=== PATIENT | female | born 1945 | race Caucasian/White ===

== ENCOUNTER 2016-04-12 19:40 | Inpatient (IN) | payer OTHER, BC, MEDICARE ==
[~2016-04-12] VITALS: Ht 160 cm; Wt 57.7 kg
[2016-04-12 19:53] VITALS: BP 100/59; PULSE 60; RESP 22; TEMP 98.7; O2SAT 88
[2016-04-12] MEDS ORDERED: SODIUM CHLOR 0.9% 1000 ML INJ 1,000 ML IV SCH (19:53)
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
[2016-04-12 20:00] VITALS: PULSE 63; RESP 22; O2SAT 98
[2016-04-12] MEDS ORDERED: DIPHTH/TETANUS/ACEL PERTUSSIS (BOOSTER) 0.5 ML VIAL/PFS IM ONE (20:00)
[2016-04-12] MEDS ORDERED: ceFAZolin 2 GM PREMIX 50 ML IV ONE (20:00)
[2016-04-12 20:21] LABS: I-STAT POTASSIUM 4.7 MMOL/L (3.5-4.9)
[2016-04-12 20:32] LABS: APTT (PATIENT) 21.2 SEC (24.3-30.1); PROTHROMBIN TIME - PATIENT 10.8 SEC (9.8-11.6)
[2016-04-12 20:36] LABS: AUTOMATED NEUTROPHIL # 6.2 TH/MM3 (1.8-7.7); BASOPHIL % 0.5 % (0.0-2.0); EOSINOPHIL # 0.1 TH/MM3 (0-0.4); EOSINOPHIL % 1.1 % (0.0-4.0); HEMATOCRIT 35.1 % (35.0-46.0); HEMO FLAGS DIFF FINAL; LYMPH % 29.6 % (9.0-44.0); LYMPHOCYTE # 2.8 TH/MM3 (1.0-4.8); MEAN CELL VOLUME 89.6 FL (80.0-100.0); MEAN CORPUSCULAR HEMOGLOBIN 31.1 PG (27.0-34.0); MEAN CORPUSCULAR HGB CONC 34.7 % (32.0-36.0); MONO % 3.7 % (0.0-8.0); NEUT % 65.1 % (16.0-70.0); PLATELET COUNT 260 TH/MM3 (150-450); RED BLOOD COUNT 3.92 MIL/MM3 (4.00-5.30); RED CELL DISTRIBUTION WIDTH 12.5 % (11.6-17.2); WHITE BLOOD COUNT 9.5 TH/MM3 (4.0-11.0)
[2016-04-12 20:52] LABS: BICARBONATE 26.9 MEQ/L (21.0-32.0)
[2016-04-12 20:53] LABS: POTASSIUM 4.8 MEQ/L (3.5-5.1)
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
[2016-04-12] MEDS ORDERED: IODIXANOL 320 MG/ML 10 ML VIAL (for Rad CT) IV ONE (21:26)
[2016-04-12 21:30] VITALS: BP 85/54; PULSE 56; RESP 16; O2SAT 98
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
[2016-04-12] MEDS ORDERED: SODIUM CHLOR 0.9% 1000 ML INJ 1,000 ML IV ONE (22:00)
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
[2016-04-12 22:30] VITALS: BP 85/47; PULSE 75; RESP 16; O2SAT 98
[2016-04-12] MEDS ORDERED: MORPHINE SULFATE 4 MG/ML INJ IV PRN (22:45)
[2016-04-12 23:30] VITALS: BP 83/53; PULSE 58; RESP 16; O2SAT 98
[2016-04-13] VITALS (12 sets, daily range): BP systolic 82–109; BP diastolic 52–57; PULSE 55–73; RESP 16–18; TEMP 97.5–97.7; O2SAT 95–100
[2016-04-13] MEDS: SODIUM CHLOR 0.9% 1000 ML INJ 1,000 ML IV SCH ×2 (01:31→09:18)
[2016-04-13] MEDS: oxyCODONE/ACETAMINOPHEN 5 MG/325 MG TAB PO PRN ×3 (02:30→22:07)
[2016-04-13 06:45] LABS: BICARBONATE 24.7 MEQ/L (21.0-32.0)
[2016-04-13 07:01] LABS: AUTOMATED NEUTROPHIL # 7.7 TH/MM3 (1.8-7.7); EOSINOPHIL % 0.1 % (0.0-4.0); HEMATOCRIT 24.2 % (35.0-46.0); HEMO FLAGS DIFF FINAL; LYMPH % 3.7 % (9.0-44.0); LYMPHOCYTE # 0.3 TH/MM3 (1.0-4.8); MEAN CELL VOLUME 91.3 FL (80.0-100.0); MEAN CORPUSCULAR HEMOGLOBIN 31.9 PG (27.0-34.0); MEAN CORPUSCULAR HGB CONC 34.9 % (32.0-36.0); MONO % 6.6 % (0.0-8.0); NEUT % 89.6 % (16.0-70.0); PLATELET COUNT 120 TH/MM3 (150-450); RED BLOOD COUNT 2.65 MIL/MM3 (4.00-5.30); RED CELL DISTRIBUTION WIDTH 12.5 % (11.6-17.2); WHITE BLOOD COUNT 8.6 TH/MM3 (4.0-11.0)
[2016-04-13] MEDS ORDERED: POTASSIUM PHOSPHATE MONOBASIC 500 MG TAB PO PRN (07:30)
[2016-04-13] MEDS ORDERED: POTASSIUM PHOSPHATE INJ 30 MMOL in SODIUM CHLOR 0.9% 250 ML INJ 250 ML IV PRN (07:30)
[2016-04-13] MEDS ORDERED: MAGNESIUM SULFATE INJ 4 GM in SODIUM CHLORIDE 0.9% INJ 92 ML IV PRN (07:30)
[2016-04-13] MEDS ORDERED: MAGNESIUM SULFATE INJ 2 GM in SODIUM CHLORIDE 0.9% INJ 96 ML IV PRN (07:30)
[2016-04-13] MEDS ORDERED: POTASSIUM CHLOR 20 MEQ PREMIX 100 ML IV PRN ×2 (07:30)
[2016-04-13] MEDS ORDERED: SODIUM PHOSPHATE INJ 30 MMOL in SODIUM CHLOR 0.9% 250 ML INJ 240 ML IV PRN (07:30)
[2016-04-13] MEDS ORDERED: MAGNESIUM OXIDE 400 MG TAB PO PRN (07:30)
[2016-04-13] MEDS ORDERED: POTASSIUM PHOSPHATE MONOBASIC 500 MG TAB PO/TUBE PRN (07:30)
[2016-04-13] MEDS ORDERED: POTASSIUM CL 40 MEQ/30 ML LIQ UDC PO/TUBE PRN ×2 (07:30)
[2016-04-13] MEDS ORDERED: POTASSIUM CHLOR 40 MEQ PREMIX 100 ML IV PRN ×2 (07:30)
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
[2016-04-13] MEDS: DOCUSATE SODIUM 50 MG/SENNA 8.6 MG TAB PO SCH ×2 (09:00→21:19)
--- NOTE | 2016-04-13 09:06 | RADRPT ---
EXAM DATE/TIME: 04/13/2016 07:38 [facility] COMPARISON: CHEST SINGLE AP, April 12, 2016, 20:07. INDICATIONS : Hemothorax. MEDICAL HISTORY : Skin cancer. SURGICAL HISTORY : None. ENCOUNTER: Initial ACUITY: 1 day PAIN SCORE: 8/10 LOCATION: Bilateral chest FINDINGS: Portable AP view of the chest demonstrates a normal-sized cardiac silhouette. There is a small right apical pneumothorax. Multiple displaced right rib fractures are present and there is mild consolidati on at the right lung base. Left lung demonstrates no acute finding. There is atelectasis at the left lung base. Right chest wall subcutaneous air is present. CONCLUSION: 1. There is a small right pneumothorax. 2. Multiple displaced right rib fractures are present and there is consolidation in the right lung ba se possibly representing contusion. Jarad Montoya MD on April 13, 2016 at 9:04 Board Certified Radiologist. This report was verified electronically.
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
[2016-04-13] MEDS: PANTOPRAZOLE SODIUM 40 MG VIAL IV PUSH SCH (09:18)
[2016-04-13 09:37] LABS: MAGNESIUM 1.9 MG/DL (1.5-2.5)
[2016-04-13] MEDS ORDERED: GENTAMICIN SULFATE 80 MG/2 ML VIAL ONE (10:13)
[2016-04-13] MEDS ORDERED: VANCOMYCIN HCL 1000 MG VIAL ONE (10:16)
[2016-04-13] MEDS ORDERED: ceFAZolin INJ 1,000 MG VIAL ONE (10:16)
[2016-04-13] MEDS ORDERED: LIDOCAINE HCL 2% 100 MG/5 ML SYRINGE ONE (11:35)
[2016-04-13] MEDS ORDERED: ATROPINE SULFATE 1 MG/10 ML SYRINGE ONE (11:35)
[2016-04-13] MEDS ORDERED: EPINEPHrine HCL (1:10,000) 1 MG/10 ML SYRINGE ONE (11:35)
[2016-04-13] MEDS ORDERED: MORPHINE SULFATE 4 MG/ML INJ IV PUSH PRN (12:00)
[2016-04-13] MEDS ORDERED: ONDANSETRON HCL 4 MG/2 ML VIAL IVP PRN (12:00)
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
[2016-04-13] MEDS ORDERED: PROPOFOL 200 MG/20 ML AMP IV ONE (13:35)
[2016-04-13] MEDS ORDERED: PHENYLEPHRINE HCL 10 MG/ML VIAL IV ONE (13:35)
[2016-04-13] MEDS ORDERED: LACTATED RINGER'S 1000 ML INJ 1,000 ML IV ONE (13:35)
[2016-04-13] MEDS ORDERED: ONDANSETRON HCL 4 MG/2 ML VIAL IV PUSH ONE (13:35)
[2016-04-13] MEDS ORDERED: NEOSTIGMINE 3 MG/3 ML SYR IV ONE (13:35)
[2016-04-13] MEDS ORDERED: DO NOT ADM ANY ANTICOAGULANT DRUGS XX PRN (13:38)
[2016-04-13] MEDS ORDERED: fentaNYL CITRATE 250 MCG/5 ML AMP ONE (13:44)
--- NOTE | 2016-04-13 14:38 | RADRPT ---
EXAM DATE/TIME: 04/13/2016 12:26 [facility] COMPARISON: WRIST LEFT LIMITED (AP & LAT), April 13, 2016, 7:46. INDICATIONS : Closed reduction of left wrist fracture. MEDICAL HISTORY : None. SURGICAL HISTORY : None. ENCOUNTER: Initial ACUITY: 1 day PAIN SCORE: Non-responsive. LOCATION: Left wrist FINDINGS: 2 spot fluoroscopic images obtained in the operating room during closed reduction and casting demonst rates improved alignment of the distal radial fracture. CONCLUSION: Improved alignment of the distal radial fracture following closed reduction and casting. Jarad Montoya MD on April 13, 2016 at 14:37 Board Certified Radiologist. This report was verified electronically.
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
[2016-04-13] MEDS: CALCIUM/VITAMIN D 250 MG/125 U TAB PO SCH ×2 (15:15→18:18)
[2016-04-13] MEDS: LACTATED RINGER'S 1000 ML INJ 1,000 ML IV SCH ×2 (15:15→22:35)
[2016-04-13] MEDS: BACITRACIN TOP OINT 15 GM TUBE TOP SCH ×2 (15:16→21:19)
[2016-04-13] MEDS: MIDODRINE 5 MG TAB PO SCH (15:16)
--- NOTE | 2016-04-13 15:41 | RADRPT ---
EXAM DATE/TIME: 04/13/2016 13:08 [facility] COMPARISON: CT ABDOMEN & PELVIS W CONTRAST, April 12, 2016, 21:29. INDICATIONS : External fixator application pelvis. MEDICAL HISTORY : None. SURGICAL HISTORY : None. ENCOUNTER: Initial ACUITY: 1 day PAIN SCORE: Non-responsive. LOCATION: Pelvis FINDINGS: 3 spot fluoroscopic images were taken in the operating room during pelvis external fixator placement. The bilateral pubic bone fractures are visualized. CONCLUSION: Spot fluoroscopic images, as above. Jarad Montoya MD on April 13, 2016 at 15:38 Board Certified Radiologist. This report was verified electronically.
--- NOTE | 2016-04-13 15:42 | RADRPT ---
EXAM DATE/TIME: 04/13/2016 13:35 [facility] COMPARISON: CHEST SINGLE AP, April 13, 2016, 7:38. INDICATIONS : Chest Tube Placement, Post Op Pelvis and Left Wrist surgery. MEDICAL HISTORY : None. SURGICAL HISTORY : None. ENCOUNTER: Initial ACUITY: 1 day PAIN SCORE: Non-responsive. LOCATION: Bilateral chest FINDINGS: Portable AP view of the chest demonstrates a normal-sized cardiac silhouette. A large bore right ches t tube has been placed in the right hemithorax with tip at the apex of the hemithorax. Pleural line r emains visualized at the apex consistent with tiny apical pneumothorax. There are multiple displaced right-sided rib fractures with right chest wall soft tissue air. There is persistent airspace opacity at the right lung base. CONCLUSION: 1. Right chest tube has been placed and minimal residual pleural air is seen at the apex of the hemit horax. 2. Multiple displaced rib fractures remain visualized with consolidation at the right lung base. Jarad Montoya MD on April 13, 2016 at 15:39 Board Certified Radiologist. This report was verified electronically.
[2016-04-13] MEDS: ceFAZolin 2 GM PREMIX 50 ML IV SCH (18:18)
[2016-04-14] VITALS (15 sets, daily range): BP systolic 98–113; BP diastolic 48–56; PULSE 55–88; RESP 16–30; TEMP 97.5–98.8; O2SAT 92–100
[2016-04-14] MEDS: ceFAZolin 2 GM PREMIX 50 ML IV SCH (01:55)
[2016-04-14] MEDS: ACETAMINOPHEN/HYDROcodone 325 MG/7.5 MG TAB PO PRN ×3 (01:55→22:12)
[2016-04-14 04:10] LABS: MEAN CELL VOLUME 90.3 FL (80.0-100.0); MEAN CORPUSCULAR HEMOGLOBIN 31.2 PG (27.0-34.0); MEAN CORPUSCULAR HGB CONC 34.5 % (32.0-36.0); RED BLOOD COUNT 1.94 MIL/MM3 (4.00-5.30); RED CELL DISTRIBUTION WIDTH 12.6 % (11.6-17.2); WHITE BLOOD COUNT 7.4 TH/MM3 (4.0-11.0)
[2016-04-14 04:14] LABS: HEMATOCRIT 17.5 % (35.0-46.0)
[2016-04-14 04:15] LABS: REVIEW FLAG AUTO DIFF
[2016-04-14 04:24] LABS: BICARBONATE 27.7 MEQ/L (21.0-32.0); MAGNESIUM 1.9 MG/DL (1.5-2.5); POTASSIUM 4.4 MEQ/L (3.5-5.1)
[2016-04-14 05:06] LABS: PLATELET COUNT 94 TH/MM3 (150-450)
[2016-04-14] MEDS: oxyCODONE/ACETAMINOPHEN 5 MG/325 MG TAB PO PRN (06:39)
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
[2016-04-14] MEDS: LACTATED RINGER'S 1000 ML INJ 1,000 ML IV SCH ×2 (08:22→17:06)
[2016-04-14] MEDS: DOCUSATE SODIUM 50 MG/SENNA 8.6 MG TAB PO SCH ×2 (08:32→20:18)
[2016-04-14] MEDS: CALCIUM/VITAMIN D 250 MG/125 U TAB PO SCH ×3 (08:32→17:06)
[2016-04-14] MEDS: PANTOPRAZOLE SODIUM 40 MG VIAL IV PUSH SCH (08:32)
[2016-04-14] MEDS: MIDODRINE 5 MG TAB PO SCH (08:32)
[2016-04-14] MEDS: SODIUM CHLORIDE 0.9% FLUSH 5 ML FLUSH IVF PRN (08:33)
[2016-04-14] MEDS: BACITRACIN TOP OINT 15 GM TUBE TOP SCH ×2 (08:33→21:00)
[2016-04-14] MEDS: FAMOTIDINE 20 MG TAB PO SCH ×2 (08:53→20:18)
[2016-04-14] MEDS: METHOCARBAMOL 500 MG TAB PO SCH ×2 (10:04→16:00)
[2016-04-14] MEDS: ENOXAPARIN SODIUM 30 MG/0.3 ML SYRINGE SQ SCH ×2 (10:49→22:12)
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
--- NOTE | 2016-04-14 13:07 | PD.ORT.PN ---
Subjective Subjective Remarks Resting comfortably. Still having some difficulty with pain and being moved and transported patient examined bedside with her Objective Vitals Vital Signs Date Time Temp Pulse Resp B/P Pulse Ox O2 Delivery O2 Flow Rate FiO2 04/14/16 12:30 Nasal Cannula 2.00 04/14/16 12:00 56 04/14/16 10:15 98.3 59 30 103/55 98 04/14/16 10:00 98.0 61 29 102/53 98 04/14/16 10:00 61 04/14/16 09:00 100 Nasal Cannula 2.00 04/14/16 08:00 97.7 55 22 111/56 99 04/14/16 08:00 55 04/14/16 07:00 100 Nasal Cannula 2.00 04/14/16 06:45 97.8 65 18 98/54 100 04/14/16 06:00 59 04/14/16 04:00 97.5 60 20 102/51 99 04/14/16 04:00 60 04/14/16 02:00 65 04/14/16 00:00 56 04/14/16 00:00 97.7 56 16 98/52 100 04/13/16 22:00 69 04/13/16 20:42 100 Nasal Cannula 2.00 04/13/16 20:00 66 04/13/16 20:00 97.5 55 16 109/54 100 04/13/16 19:00 100 Nasal Cannula 2.00 04/13/16 18:00 60 04/13/16 16:00 97.6 73 16 107/57 95 04/13/16 16:00 73 04/13/16 14:15 98.1 71 17 129/57 99 Nasal Cannula 2 04/13/16 14:00 93 16 131/68 100 Nasal Cannula 2 04/13/16 14:00 56 04/13/16 13:45 85 16 111/53 100 Nasal Cannula 2 04/13/16 13:29 98.1 111 16 110/53 92 Nasal Cannula 2 I/O 04/13/16 04/13/16 04/13/16 04/14/16 04/14/16 04/14/16 07:00 15:00 23:00 07:00 15:00 23:00 Intake Total 420 ml 2350 ml 680 ml 1010 ml 500 ml Output Total 400 ml 1230 ml 355 ml 580 ml Balance 20 ml 1120 ml 325 ml 430 ml 500 ml Intake Oral 120 ml 100 ml 120 ml 360 ml IV Total 300 ml 650 ml 560 ml 650 ml Packed Cells 500 ml Other 1600 ml Output Urine Total 400 ml 800 ml 325 ml 500 ml Chest Tube Drainage Total 330 ml 30 ml 80 ml Estimated Blood Loss 100 ml # Bowel Movements 0 0 0 0 Result Diagram: 04/14/16 0351 04/14/16 0351 Imaging Last 24 hours Impressions Thoracic Spine CT 04/12/161952 Signed Impressions: Service Date/Time: Tuesday, April 12, 2016 21:29 - CONCLUSION: 1. No acute vertebral body fractures identified in the thoracic spine. Multiple right- sided rib fractures with right hemothorax. Chaka Heaton MD Pelvis X-Ray 04/12/161952 Signed Impressions: Service Date/Time: Tuesday, April 12, 2016 20:26 - CONCLUSION: 1. Bilateral pelvic fractures as above. Chaka Heaton MD Lumbar Spine CT 04/12/161952 Signed Impressions: Service Date/Time: Tuesday, April 12, 2016 21:29 - CONCLUSION: Moderate to severe degenerative change with a mild dextroscoliosis. No vertebral body fracture. Fractures of the left transverse process at L4 and L5 and left sacral ala. Chaka Heaton MD Head CT 04/12/161952 Signed Impressions: Service Date/Time: Tuesday, April 12, 2016 21:23 - CONCLUSION: 1. No acute findings. Chronic white matter ischemic changes. Chaka Heaton MD Chest X-Ray 04/12/161952 Signed Impressions: Service Date/Time: Tuesday, April 12, 2016 20:07 - CONCLUSION: 1. Multiple right-sided rib fractures with subcutaneous air in the right chest wall. CT pending. Chaka Heaton MD Chest CT 04/12/161952 Signed Impressions: Service Date/Time: Tuesday, April 12, 2016 21:29 - CONCLUSION: 1. Multiple displaced right-sided rib fractures with small right pneumothorax and hemothorax and small right lung contusion inferiorly. Air in right chest wall. See abdomen CT for findings below the diaphragm. 2. No CT findings for traumatic aortic injury. 3. Relatively nondisplaced lower left anterior fracture also present without left pneumothorax. Chaka Heaton MD Cervical Spine CT 04/12/161952 Signed Impressions: Service Date/Time: Tuesday, April 12, 2016 21:23 - CONCLUSION: 1. Moderate degenerative change. No acute findings. No significant canal stenosis. Chaka Heaton MD Abdomen/Pelvis CT 04/12/161952 Signed Impressions: Service Date/Time: Tuesday, April 12, 2016 21:29 - CONCLUSION: 1. Laceration of right lobe liver near dome and posteriorly without significant hemoperitoneum around the liver. 2. Fractures of the left sacral ala and bilateral superior and inferior pubic rami with diastasis of the right sacroiliac joint. There is some pelvic sidewall hematoma and hemorrhage around the rami fractures. Minimal hemoperitoneum. No pneumoperitoneum. Chaka Heaton MD Objective Remarks Left upper extremity: Cast that is appropriate fit. She has intact sensation over the radial ulnar and median nerve distributions with good capillary refills. She is able fully extend her fingers and make a fist Pelvis external fixator in place. Pin sites are clean and dry. Bilateral lower extremities: Mild pain with movement of bilateral hips. No pain with knee or ankle range of motion. Distally she has intact sensation with good capillary refills Assessment & Plan Assessment and Plan 1) Bilateral Sup/Inf Rami Fractures with left SI fx and right SI widening - external fixation POD 1 Pin care twice a day Toe-touch weightbearing bilateral lower extremities 2) Left Distal Radius Fx -NWB Left wrist in cast Case management for rehabilitation placement when stable. Patient and her live in [place]. OSCAR TORRES PA-C Apr 14, 2016 13:07
--- NOTE | 2016-04-14 16:09 | OTSOAPIP ---
TIME SESSION COMPLETED: PM TREATMENT TIME: 0 MINS. CHART REVIEWED. ATTEMPTED TO SEE FOR OT EVALUATION, HOWEVER PT WITH LOW HEMOGLOBIN OF 6.0 AND IS RECEIVING BLOOD TRANSFUSION. WILL DEFER UNTIL TOMORROW. Therapist: ALEXEY MONTEZ OT/L Signature on file
[2016-04-14 19:13] LABS: HEMATOCRIT 24.8 % (35.0-46.0)
[2016-04-14 19:15] LABS: REVIEW FLAG FINAL
[2016-04-15] VITALS (7 sets, daily range): BP systolic 100–166; BP diastolic 51–69; PULSE 76–84; RESP 12–19; TEMP 97.6–98.9; O2SAT 91–94
[2016-04-15] MEDS: METHOCARBAMOL 500 MG TAB PO SCH ×3 (01:00→18:16)
[2016-04-15] MEDS: ACETAMINOPHEN/HYDROcodone 325 MG/7.5 MG TAB PO PRN ×3 (04:38→18:24)
--- NOTE | 2016-04-15 06:41 | PD.ORT.PN ---
Subjective Subjective Remarks POD 2 s/p application of pelvis exfix POD 2 s/p closed reduction and casting left wrist doing well. pain controlled. Objective Vitals Vital Signs Date Time Temp Pulse Resp B/P Pulse Ox O2 Delivery O2 Flow Rate FiO2 04/15/16 04:00 97.9 79 18 105/54 92 04/15/16 00:00 98.6 80 19 100/52 92 04/14/16 23:12 16 04/14/16 20:00 92 Nasal Cannula 3.00 04/14/16 20:00 98.8 88 18 103/51 92 04/14/16 19:41 Nasal Cannula 2.00 04/14/16 17:08 Nasal Cannula 2.00 04/14/16 16:46 92 Nasal Cannula 2.00 04/14/16 16:00 98.1 81 17 113/53 97 04/14/16 13:00 97.8 73 18 112/48 92 04/14/16 13:00 Nasal Cannula 2.00 04/14/16 12:30 Nasal Cannula 2.00 04/14/16 12:00 56 04/14/16 10:15 98.3 59 30 103/55 98 04/14/16 10:00 98.0 61 29 102/53 98 04/14/16 10:00 61 04/14/16 09:00 100 Nasal Cannula 2.00 04/14/16 08:00 97.7 55 22 111/56 99 04/14/16 08:00 55 04/14/16 07:00 100 Nasal Cannula 2.00 04/14/16 06:45 97.8 65 18 98/54 100 I/O 04/14/16 04/14/16 04/14/16 04/15/16 04/15/16 04/15/16 07:00 15:00 23:00 07:00 15:00 23:00 Intake Total 1010 ml 1379 ml 741 ml Output Total 580 ml 410 ml 30 ml Balance 430 ml 969 ml 711 ml Intake Oral 360 ml IV Total 650 ml 879 ml 741 ml Packed Cells 500 ml Output Urine Total 500 ml 400 ml Chest Tube Drainage Total 80 ml 10 ml 30 ml # Bowel Movements 0 Result Diagram: 04/14/16 1905 04/14/16 0351 Imaging Last 24 hours Impressions Thoracic Spine CT 04/12/161952 Signed Impressions: Service Date/Time: Tuesday, April 12, 2016 21:29 - CONCLUSION: 1. No acute vertebral body fractures identified in the thoracic spine. Multiple right- sided rib fractures with right hemothorax. Chaka Heaton MD Pelvis X-Ray 04/12/161952 Signed Impressions: Service Date/Time: Tuesday, April 12, 2016 20:26 - CONCLUSION: 1. Bilateral pelvic fractures as above. Chaka Heaton MD Lumbar Spine CT 04/12/161952 Signed Impressions: Service Date/Time: Tuesday, April 12, 2016 21:29 - CONCLUSION: Moderate to severe degenerative change with a mild dextroscoliosis. No vertebral body fracture. Fractures of the left transverse process at L4 and L5 and left sacral ala. Chaka Heaton MD Head CT 04/12/161952 Signed Impressions: Service Date/Time: Tuesday, April 12, 2016 21:23 - CONCLUSION: 1. No acute findings. Chronic white matter ischemic changes. Chaka Heaton MD Chest X-Ray 04/12/161952 Signed Impressions: Service Date/Time: Tuesday, April 12, 2016 20:07 - CONCLUSION: 1. Multiple right-sided rib fractures with subcutaneous air in the right chest wall. CT pending. Chaka Heaton MD Chest CT 04/12/161952 Signed Impressions: Service Date/Time: Tuesday, April 12, 2016 21:29 - CONCLUSION: 1. Multiple displaced right-sided rib fractures with small right pneumothorax and hemothorax and small right lung contusion inferiorly. Air in right chest wall. See abdomen CT for findings below the diaphragm. 2. No CT findings for traumatic aortic injury. 3. Relatively nondisplaced lower left anterior fracture also present without left pneumothorax. Chaka Heaton MD Cervical Spine CT 04/12/161952 Signed Impressions: Service Date/Time: Tuesday, April 12, 2016 21:23 - CONCLUSION: 1. Moderate degenerative change. No acute findings. No significant canal stenosis. Chaka Heaton MD Abdomen/Pelvis CT 04/12/161952 Signed Impressions: Service Date/Time: Tuesday, April 12, 2016 21:29 - CONCLUSION: 1. Laceration of right lobe liver near dome and posteriorly without significant hemoperitoneum around the liver. 2. Fractures of the left sacral ala and bilateral superior and inferior pubic rami with diastasis of the right sacroiliac joint. There is some pelvic sidewall hematoma and hemorrhage around the rami fractures. Minimal hemoperitoneum. No pneumoperitoneum. Chaka Heaton MD Objective Remarks Left upper extremity: Cast that is appropriate fit. She has intact sensation over the radial ulnar and median nerve distributions with good capillary refills. She is able fully extend her fingers and make a fist Pelvis external fixator in place. Pin sites are clean and dry. Bilateral lower extremities: Mild pain with movement of bilateral hips. No pain with knee or ankle range of motion. Distally she has intact sensation with good capillary refills Assessment & Plan Assessment and Plan 1) Bilateral Sup/Inf Rami Fractures with left SI fx and right SI widening - external fixation POD 2 Pin care twice a day Toe-touch weightbearing bilateral lower extremities 2) Left Distal Radius Fx s/p closed reduction and casting - POD 2 -NWB Left wrist in cast Case management for rehabilitation placement when stable. Patient and her live in [place]. ortho clear for discharge Ayo Siddiqi Apr 15, 2016 06:41
--- NOTE | 2016-04-15 06:42 | RADRPT ---
EXAM DATE/TIME: 04/15/2016 05:17 [facility] COMPARISON: CHEST SINGLE AP, April 14, 2016, 4:29. INDICATIONS : Short of breath, evaluate hemothorax, pneumothorax and chest tube on right side MEDICAL HISTORY : hemopneumothorax, chest tube SURGICAL HISTORY : pelvis, left wrist ENCOUNTER: Subsequent ACUITY: 3 days PAIN SCORE: 10/10 LOCATION: Bilateral chest FINDINGS: The right chest tube remains in place. There is no pneumothorax. There is some atelectasis in the rig ht lung base. The left lung is grossly clear. No significant pleural effusions. The heart size is sta ble. Multiple right-sided rib fractures are again demonstrated which appear to be stable. CONCLUSION: Right chest tube in place. No pneumothorax. Mustapha Morocho MD on April 15, 2016 at 6:36 Board Certified Radiologist. This report was verified electronically.
[2016-04-15] MEDS ORDERED: WHEEMIS3 (06:44)
[2016-04-15] MEDS ORDERED: HYDR-3288 PO (06:44)
[2016-04-15] MEDS ORDERED: XARE10TA PO (06:44)
[2016-04-15 06:51] LABS: MEAN CELL VOLUME 86.5 FL (80.0-100.0); MEAN CORPUSCULAR HGB CONC 34.7 % (32.0-36.0); PLATELET COUNT 73 TH/MM3 (150-450); RED BLOOD COUNT 2.66 MIL/MM3 (4.00-5.30); RED CELL DISTRIBUTION WIDTH 14.3 % (11.6-17.2); WHITE BLOOD COUNT 5.9 TH/MM3 (4.0-11.0)
[2016-04-15 06:55] LABS: REVIEW FLAG FINAL
[2016-04-15 07:12] LABS: BICARBONATE 28.2 MEQ/L (21.0-32.0); POTASSIUM 4.2 MEQ/L (3.5-5.1)
[2016-04-15] MEDS: CALCIUM/VITAMIN D 250 MG/125 U TAB PO SCH ×3 (08:44→18:16)
[2016-04-15] MEDS: FAMOTIDINE 20 MG TAB PO SCH ×2 (08:44→20:28)
[2016-04-15] MEDS: DOCUSATE SODIUM 50 MG/SENNA 8.6 MG TAB PO SCH ×2 (08:45→20:28)
[2016-04-15] MEDS: MIDODRINE 5 MG TAB PO SCH (08:45)
[2016-04-15] MEDS ORDERED: LACTULOSE SYRUP 20 GM/30 ML CUP PO ONE (09:00)
[2016-04-15] MEDS: BACITRACIN TOP OINT 15 GM TUBE TOP SCH ×2 (10:23→20:28)
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
[2016-04-15] MEDS: ENOXAPARIN SODIUM 30 MG/0.3 ML SYRINGE SQ SCH (11:42)
[2016-04-15] MEDS: LACTATED RINGER'S 1000 ML INJ 1,000 ML IV SCH ×2 (13:57→23:57)
[2016-04-15] MEDS: MAGNESIUM HYDROXIDE SUSP 30 ML CUP PO PRN (20:28)
[2016-04-15] MEDS: SODIUM CHLORIDE 0.9% FLUSH 5 ML FLUSH IVF PRN (20:29)
--- NOTE | 2016-04-15 22:28 | EKG ---
Date Performed: 04/13/2016 Time Performed: 00:02:22 PTAGE: 70 years EKG: Sinus rhythm WITH OCCASIONAL VENTRICULAR PREMATURE COMPLEXES PROLONGED QT INTERVAL ABNORMAL ECG NO PREVIOUS TRACING DOCTOR: Roni Hartman Interpretating Date/Time 04/15/2016 22:27:53
[2016-04-16] VITALS: BP 133/69; PULSE 73; RESP 16; TEMP 98.5; O2SAT 95
[2016-04-16] MEDS: METHOCARBAMOL 500 MG TAB PO SCH ×4 (00:27→23:45)
[2016-04-16] MEDS: ENOXAPARIN SODIUM 30 MG/0.3 ML SYRINGE SQ SCH ×3 (00:27→23:46)
[2016-04-16 06:09] LABS: AUTOMATED NEUTROPHIL # 3.8 TH/MM3 (1.8-7.7); BASOPHIL % 0.6 % (0.0-2.0); EOSINOPHIL # 0.3 TH/MM3 (0-0.4); EOSINOPHIL % 5.2 % (0.0-4.0); HEMATOCRIT 24.5 % (35.0-46.0); MEAN CELL VOLUME 85.6 FL (80.0-100.0); MEAN CORPUSCULAR HEMOGLOBIN 30.2 PG (27.0-34.0); MEAN CORPUSCULAR HGB CONC 35.3 % (32.0-36.0); MONO % 6.2 % (0.0-8.0); PLATELET COUNT 93 TH/MM3 (150-450); RED BLOOD COUNT 2.86 MIL/MM3 (4.00-5.30); RED CELL DISTRIBUTION WIDTH 13.8 % (11.6-17.2); WHITE BLOOD COUNT 5.4 TH/MM3 (4.0-11.0)
[2016-04-16 06:17] LABS: HEMO FLAGS AUTO DIFF
--- NOTE | 2016-04-16 06:35 | RADRPT ---
EXAM DATE/TIME: 04/16/2016 05:06 [facility] COMPARISON: CHEST SINGLE AP, April 15, 2016, 5:17. INDICATIONS : Short of breath, no coughing, evaluate right side pneumothorax and chest tube MEDICAL HISTORY : hemopneumothorax, chest tube SURGICAL HISTORY : pelvis, left wrist ENCOUNTER: Subsequent ACUITY: 4 - 6 days PAIN SCORE: 8/10 LOCATION: Right chest FINDINGS: The right chest tube remains in place. No pneumothorax. The left lung is clear. There is stable atele ctasis in the right lung base. The right-sided rib fractures are stable. The heart size is stable. CONCLUSION: No significant interval change. Mustapha Morocho MD on April 16, 2016 at 6:32 Board Certified Radiologist. This report was verified electronically.
[2016-04-16 06:36] LABS: ALT (GPT) 107 U/L (10-53); ANION GAP 5 MEQ/L (5-15); AST (GOT) 86 U/L (15-37); BICARBONATE 32.3 MEQ/L (21.0-32.0); BLOOD UREA NITROGEN 8 MG/DL (7-18); CHLORIDE 102 MEQ/L (98-107); GLOMERULAR FILTRATION RATE 125 ML/MIN (>89); MAGNESIUM 1.9 MG/DL (1.5-2.5); POTASSIUM 3.9 MEQ/L (3.5-5.1); SODIUM (NA) 139 MEQ/L (136-145)
[2016-04-16 06:42] LABS: ALKALINE PHOSPHATASE 59 U/L (45-117); TOTAL BILIRUBIN ADULT 0.7 MG/DL (0.2-1.0)
--- NOTE | 2016-04-16 07:08 | PD.ORT.PN ---
Subjective Subjective Remarks Resting comfortably. Still having some difficulty with pain and being moved and transported patient examined bedside with her Objective Vitals Vital Signs Date Time Temp Pulse Resp B/P Pulse Ox O2 Delivery O2 Flow Rate FiO2 04/16/16 00:00 98.5 73 16 133/69 95 04/15/16 22:00 Nasal Cannula 2.00 04/15/16 20:00 98.3 82 16 166/69 91 04/15/16 16:00 98.1 84 16 102/54 93 04/15/16 12:00 97.6 76 18 103/51 94 04/15/16 08:49 94 Nasal Cannula 3.00 04/15/16 08:00 98.9 82 12 107/56 94 I/O 04/15/16 04/15/16 04/15/16 04/16/16 04/16/16 04/16/16 07:00 15:00 23:00 07:00 15:00 23:00 Intake Total 120 ml 480 ml 240 ml 240 ml Output Total 250 ml 650 ml 705 ml 300 ml Balance -130 ml -170 ml -465 ml -60 ml Intake Oral 120 ml 480 ml 240 ml 240 ml Output Urine Total 250 ml 650 ml 700 ml 300 ml Chest Tube Drainage Total 5 ml 0 ml # Bowel Movements 0 0 0 Result Diagram: 04/16/1641904/16/16419 Imaging Last 24 hours Impressions Thoracic Spine CT 04/12/161952 Signed Impressions: Service Date/Time: Tuesday, April 12, 2016 21:29 - CONCLUSION: 1. No acute vertebral body fractures identified in the thoracic spine. Multiple right- sided rib fractures with right hemothorax. Chaka Heaton MD Pelvis X-Ray 04/12/161952 Signed Impressions: Service Date/Time: Tuesday, April 12, 2016 20:26 - CONCLUSION: 1. Bilateral pelvic fractures as above. Chaka Heaton MD Lumbar Spine CT 04/12/161952 Signed Impressions: Service Date/Time: Tuesday, April 12, 2016 21:29 - CONCLUSION: Moderate to severe degenerative change with a mild dextroscoliosis. No vertebral body fracture. Fractures of the left transverse process at L4 and L5 and left sacral ala. Chaka Heaton MD Head CT 04/12/161952 Signed Impressions: Service Date/Time: Tuesday, April 12, 2016 21:23 - CONCLUSION: 1. No acute findings. Chronic white matter ischemic changes. Chaka Heaton MD Chest X-Ray 04/12/161952 Signed Impressions: Service Date/Time: Tuesday, April 12, 2016 20:07 - CONCLUSION: 1. Multiple right-sided rib fractures with subcutaneous air in the right chest wall. CT pending. Chaka Heaton MD Chest CT 04/12/161952 Signed Impressions: Service Date/Time: Tuesday, April 12, 2016 21:29 - CONCLUSION: 1. Multiple displaced right-sided rib fractures with small right pneumothorax and hemothorax and small right lung contusion inferiorly. Air in right chest wall. See abdomen CT for findings below the diaphragm. 2. No CT findings for traumatic aortic injury. 3. Relatively nondisplaced lower left anterior fracture also present without left pneumothorax. Chaka Heaton MD Cervical Spine CT 04/12/161952 Signed Impressions: Service Date/Time: Tuesday, April 12, 2016 21:23 - CONCLUSION: 1. Moderate degenerative change. No acute findings. No significant canal stenosis. Chaka Heaton MD Abdomen/Pelvis CT 04/12/161952 Signed Impressions: Service Date/Time: Tuesday, April 12, 2016 21:29 - CONCLUSION: 1. Laceration of right lobe liver near dome and posteriorly without significant hemoperitoneum around the liver. 2. Fractures of the left sacral ala and bilateral superior and inferior pubic rami with diastasis of the right sacroiliac joint. There is some pelvic sidewall hematoma and hemorrhage around the rami fractures. Minimal hemoperitoneum. No pneumoperitoneum. Chaka Heaton MD Objective Remarks Left upper extremity: Cast that is appropriate fit. She has intact sensation over the radial ulnar and median nerve distributions with good capillary refills. She is able fully extend her fingers and make a fist Pelvis external fixator in place. Pin sites are clean and dry. Bilateral lower extremities: Mild pain with movement of bilateral hips. No pain with knee or ankle range of motion. Distally she has intact sensation with good capillary refills Assessment & Plan Assessment and Plan 1) Bilateral Sup/Inf Rami Fractures with left SI fx and right SI widening - external fixation POD 3 Pin care twice a day Toe-touch weightbearing bilateral lower extremities 2) Left Distal Radius Fx s/p closed reduction and casting - POD 3 -NWB Left wrist in cast Case management for rehabilitation placement when stable. Patient and her live in [place]. ortho clear for discharge OSCAR TORRES PA-C Apr 16, 2016 07:08
[2016-04-16] MEDS ORDERED: BISACODYL EC 5 MG TABEC PO ONE (07:30)
[2016-04-16] MEDS ORDERED: BISACODYL 10 MG SUPP RECTAL ONE (07:30)
[2016-04-16 07:50] LABS: PLATELET ESTIMATE SMEAR LOW (NORMAL); PLATELET MORPHOLOGY ENLARGED (NORMAL); SCAN/DIFF AUTO DIFF CONFIRMED
[2016-04-16 08:00] VITALS: BP 137/72; PULSE 78; RESP 16; TEMP 97.5; O2SAT 99
[2016-04-16] MEDS: CALCIUM/VITAMIN D 250 MG/125 U TAB PO SCH ×3 (09:21→18:16)
[2016-04-16] MEDS: DOCUSATE SODIUM 50 MG/SENNA 8.6 MG TAB PO SCH ×2 (09:21→21:00)
[2016-04-16] MEDS: MIDODRINE 5 MG TAB PO SCH (09:21)
[2016-04-16] MEDS: FAMOTIDINE 20 MG TAB PO SCH ×2 (09:22→21:15)
[2016-04-16] MEDS: ACETAMINOPHEN/HYDROcodone 325 MG/7.5 MG TAB PO PRN ×4 (09:24→23:45)
[2016-04-16] MEDS: MAGNESIUM HYDROXIDE SUSP 30 ML CUP PO PRN (09:24)
[2016-04-16] MEDS: BACITRACIN TOP OINT 15 GM TUBE TOP SCH ×2 (09:28→21:00)
[2016-04-16] MEDS: LACTATED RINGER'S 1000 ML INJ 1,000 ML IV SCH ×2 (09:57→19:57)
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
[2016-04-16 12:29] VITALS: BP 129/70; PULSE 76; RESP 16; TEMP 98.1; O2SAT 98
--- NOTE | 2016-04-16 15:14 | RADRPT ---
EXAM DATE/TIME: 04/16/2016 14:27 [facility] COMPARISON: CHEST SINGLE AP, April 16, 2016, 5:06. INDICATIONS : Post chest tube removal. MEDICAL HISTORY : None. SURGICAL HISTORY : None. ENCOUNTER: Initial ACUITY: 1 day PAIN SCORE: 0/10 LOCATION: Right chest FINDINGS: Portable upright expiratory view of the chest demonstrates tiny right apical pneumothorax following r ight chest tube removal. There is persistent bibasilar pleural-parenchymal opacity. There are multipl e displaced right rib fractures again visualized. CONCLUSION: 1. A tiny right apical pneumothorax is present following right chest tube removal. 2. Stable bibasilar pleural-parenchymal opacity. 3. Stable displaced right rib fractures. Jarad Montoya MD on April 16, 2016 at 15:12 Board Certified Radiologist. This report was verified electronically.
[2016-04-16 16:00] VITALS: BP 126/62; PULSE 64; RESP 16; TEMP 97.4; O2SAT 98
[2016-04-16 18:12] VITALS: O2SAT 98
[2016-04-16 20:00] VITALS: BP 143/63; PULSE 78; RESP 17; TEMP 98.3; O2SAT 96
[2016-04-17] VITALS: BP 113/65; PULSE 65; RESP 16; TEMP 98.1; O2SAT 98
[2016-04-17] MEDS: ACETAMINOPHEN/HYDROcodone 325 MG/7.5 MG TAB PO PRN ×4 (04:55→21:12)
[2016-04-17] MEDS: LACTATED RINGER'S 1000 ML INJ 1,000 ML IV SCH (05:57)
--- NOTE | 2016-04-17 07:04 | RADRPT ---
EXAM DATE/TIME: 04/17/2016 06:31 [facility] COMPARISON: CHEST SINGLE AP, April 16, 2016, 14:27. INDICATIONS : Pneumothorax. Short of breath. MEDICAL HISTORY : None. SURGICAL HISTORY : None. ENCOUNTER: Subsequent ACUITY: 2 days PAIN SCORE: 0/10 LOCATION: Bilateral chest FINDINGS: There continues to be a small right apical pneumothorax of 5 mm of separation. This is stable compare d to the prior study. There continues to be bibasilar infiltrates which are mildly improved. No gaston e in the multiple right-sided rib fractures. The heart size is stable. No significant pleural effusio ns. No significant changes compared to the prior study. CONCLUSION: 1. Stable tiny right apical pneumothorax with 5 mm of separation. 2. Bibasilar infiltrates are mildly improved. Mustapha Morocho MD on April 17, 2016 at 7:01 Board Certified Radiologist. This report was verified electronically.
[2016-04-17 08:00] VITALS: BP 106/63; PULSE 95; RESP 16; TEMP 96.9; O2SAT 95
[2016-04-17] MEDS: CALCIUM/VITAMIN D 250 MG/125 U TAB PO SCH ×3 (09:19→18:38)
[2016-04-17] MEDS: METHOCARBAMOL 500 MG TAB PO SCH ×2 (09:19→16:42)
[2016-04-17] MEDS: DOCUSATE SODIUM 50 MG/SENNA 8.6 MG TAB PO SCH ×2 (09:19→21:11)
[2016-04-17] MEDS: MIDODRINE 5 MG TAB PO SCH (09:19)
[2016-04-17] MEDS: FAMOTIDINE 20 MG TAB PO SCH ×2 (09:20→21:11)
[2016-04-17] MEDS: BACITRACIN TOP OINT 15 GM TUBE TOP SCH ×2 (09:20→21:00)
[2016-04-17] MEDS: ENOXAPARIN SODIUM 30 MG/0.3 ML SYRINGE SQ SCH (11:36)
[2016-04-17 12:00] VITALS: BP 118/56; PULSE 74; RESP 16; TEMP 98.2; O2SAT 96
[2016-04-17 12:50] VITALS: O2SAT 95
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
[2016-04-17 16:00] VITALS: BP 103/54; PULSE 66; RESP 16; TEMP 98.9; O2SAT 93
[2016-04-17] MEDS ORDERED: METH500T3 PO (17:09)
[2016-04-17] MEDS ORDERED: MIDO5TAB PO (17:09)
[2016-04-17] MEDS ORDERED: SENN1TAB PO (17:09)
[2016-04-17] MEDS ORDERED: OYST250T4 PO (17:09)
[2016-04-17] MEDS ORDERED: BACI500O2 TOP (17:09)
[2016-04-17] MEDS ORDERED: diphenhydrAMINE HCL 50 MG/ML VIAL IV PUSH PRN (18:00)
[2016-04-17 20:00] VITALS: BP 110/62; PULSE 74; RESP 19; TEMP 98.4; O2SAT 92
[2016-04-18] VITALS: BP 120/67; PULSE 106; RESP 18; TEMP 98.3; O2SAT 96
[2016-04-18] MEDS: ACETAMINOPHEN/HYDROcodone 325 MG/7.5 MG TAB PO PRN ×6 (00:25→20:23)
[2016-04-18] MEDS: ENOXAPARIN SODIUM 30 MG/0.3 ML SYRINGE SQ SCH ×2 (00:25→10:43)
[2016-04-18] MEDS: METHOCARBAMOL 500 MG TAB PO SCH ×3 (00:25→17:33)
--- NOTE | 2016-04-18 06:54 | PD.ORT.PN ---
Subjective Subjective Remarks Resting comfortably. Looking into getting discharge to rehabilitation possibly today Objective Vitals Vital Signs Date Time Temp Pulse Resp B/P Pulse Ox O2 Delivery O2 Flow Rate FiO2 04/18/16 00:00 98.3 106 18 120/67 96 04/17/16 21:10 2.00 04/17/16 20:00 98.4 74 19 110/62 92 04/17/16 18:12 Nasal Cannula 1.00 04/17/16 16:00 98.9 66 16 103/54 93 04/17/16 12:50 95 Nasal Cannula 1.00 04/17/16 12:00 98.2 74 16 118/56 96 04/17/16 08:10 Nasal Cannula 2.00 04/17/16 08:00 96.9 95 16 106/63 95 I/O 04/17/16 04/17/16 04/17/16 04/18/16 04/18/16 04/18/16 07:00 15:00 23:00 07:00 15:00 23:00 Intake Total 240 ml 1200 ml 240 ml Balance 240 ml 1200 ml 240 ml Intake Oral 240 ml 1200 ml 240 ml # Voids 3 4 2 # Bowel Movements 0 0 0 Result Diagram: 04/16/160 04/16/16 0420 Imaging Last 24 hours Impressions Thoracic Spine CT 04/12/161952 Signed Impressions: Service Date/Time: Tuesday, April 12, 2016 21:29 - CONCLUSION: 1. No acute vertebral body fractures identified in the thoracic spine. Multiple right- sided rib fractures with right hemothorax. Chaka Heaton MD Pelvis X-Ray 04/12/161952 Signed Impressions: Service Date/Time: Tuesday, April 12, 2016 20:26 - CONCLUSION: 1. Bilateral pelvic fractures as above. Chaka Heaton MD Lumbar Spine CT 04/12/161952 Signed Impressions: Service Date/Time: Tuesday, April 12, 2016 21:29 - CONCLUSION: Moderate to severe degenerative change with a mild dextroscoliosis. No vertebral body fracture. Fractures of the left transverse process at L4 and L5 and left sacral ala. Chaka Heaton MD Head CT 04/12/161952 Signed Impressions: Service Date/Time: Tuesday, April 12, 2016 21:23 - CONCLUSION: 1. No acute findings. Chronic white matter ischemic changes. Chaka Heaton MD Chest X-Ray 04/12/161952 Signed Impressions: Service Date/Time: Tuesday, April 12, 2016 20:07 - CONCLUSION: 1. Multiple right-sided rib fractures with subcutaneous air in the right chest wall. CT pending. Chaka Heaton MD Chest CT 04/12/161952 Signed Impressions: Service Date/Time: Tuesday, April 12, 2016 21:29 - CONCLUSION: 1. Multiple displaced right-sided rib fractures with small right pneumothorax and hemothorax and small right lung contusion inferiorly. Air in right chest wall. See abdomen CT for findings below the diaphragm. 2. No CT findings for traumatic aortic injury. 3. Relatively nondisplaced lower left anterior fracture also present without left pneumothorax. Chaka Heaton MD Cervical Spine CT 04/12/161952 Signed Impressions: Service Date/Time: Tuesday, April 12, 2016 21:23 - CONCLUSION: 1. Moderate degenerative change. No acute findings. No significant canal stenosis. Chaka Heaton MD Abdomen/Pelvis CT 04/12/161952 Signed Impressions: Service Date/Time: Tuesday, April 12, 2016 21:29 - CONCLUSION: 1. Laceration of right lobe liver near dome and posteriorly without significant hemoperitoneum around the liver. 2. Fractures of the left sacral ala and bilateral superior and inferior pubic rami with diastasis of the right sacroiliac joint. There is some pelvic sidewall hematoma and hemorrhage around the rami fractures. Minimal hemoperitoneum. No pneumoperitoneum. Chaka Heaton MD Objective Remarks Left upper extremity: Cast that is appropriate fit. She has intact sensation over the radial ulnar and median nerve distributions with good capillary refills. She is able fully extend her fingers and make a fist Pelvis external fixator in place. Pin sites are clean and dry. Bilateral lower extremities: Mild pain with movement of bilateral hips. No pain with knee or ankle range of motion. Distally she has intact sensation with good capillary refills Assessment & Plan Assessment and Plan 1) Bilateral Sup/Inf Rami Fractures with left SI fx and right SI widening - external fixation POD 4 Pin care twice a day Toe-touch weightbearing bilateral lower extremities 2) Left Distal Radius Fx s/p closed reduction and casting - POD 4 -NWB Left wrist in cast Case management for rehabilitation placement when stable. Patient and her live in [place]. ortho clear for discharge OSCAR TORRES PA-C Apr 18, 2016 06:54
[2016-04-18 08:00] VITALS: BP 126/54; PULSE 96; RESP 16; TEMP 97.9; O2SAT 95
[2016-04-18] MEDS: BACITRACIN TOP OINT 15 GM TUBE TOP SCH ×2 (09:00→20:24)
[2016-04-18] MEDS: MAGNESIUM HYDROXIDE SUSP 30 ML CUP PO PRN (09:04)
[2016-04-18] MEDS: CALCIUM/VITAMIN D 250 MG/125 U TAB PO SCH ×3 (09:04→18:34)
[2016-04-18] MEDS: DOCUSATE SODIUM 50 MG/SENNA 8.6 MG TAB PO SCH ×2 (09:04→20:23)
[2016-04-18] MEDS: FAMOTIDINE 20 MG TAB PO SCH ×2 (09:05→20:23)
[2016-04-18] MEDS: MIDODRINE 5 MG TAB PO SCH (09:05)
[2016-04-18 10:00] VITALS: O2SAT 97
[2016-04-18 12:00] VITALS: BP 120/63; PULSE 69; RESP 16; TEMP 98.8; O2SAT 94
[2016-04-18 12:49] LABS: BLOOD, URINE SMALL (NEG); COMMENT (UR) CULT NOT INDICATED; CULTURE IF INDICATED CULT NOT INDICATED; GLUCOSE,URINE NEG (NEG); KETONE, URINE NEG (NEG); MUCUS URINE FEW /lpf (OCC); NITRITE,URINE NEG (NEG); SQUAMOUS EPITHELIAL CELL URINE <1 /hpf (0-5); TRANSITIONAL EPI CELLS, URINE <1 /hpf; URINE COLOR YELLOW (YELLW/STRAW)
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
[2016-04-18 16:00] VITALS: BP 141/69; PULSE 92; RESP 16; TEMP 99.6; O2SAT 96
[2016-04-18 20:00] VITALS: BP 113/64; PULSE 96; RESP 17; TEMP 98; O2SAT 96
[2016-04-19] VITALS: BP 115/57; PULSE 100; RESP 18; TEMP 98.8; O2SAT 96
[2016-04-19] MEDS: ENOXAPARIN SODIUM 30 MG/0.3 ML SYRINGE SQ SCH ×2 (00:38→11:41)
[2016-04-19] MEDS: METHOCARBAMOL 500 MG TAB PO SCH ×2 (00:38→07:48)
[2016-04-19] MEDS: ACETAMINOPHEN/HYDROcodone 325 MG/7.5 MG TAB PO PRN ×3 (02:15→11:42)
[2016-04-19] MEDS: MIDODRINE 5 MG TAB PO SCH (07:48)
[2016-04-19] MEDS: FAMOTIDINE 20 MG TAB PO SCH (07:48)
[2016-04-19] MEDS: CALCIUM/VITAMIN D 250 MG/125 U TAB PO SCH ×2 (07:49→11:41)
[2016-04-19] MEDS: DOCUSATE SODIUM 50 MG/SENNA 8.6 MG TAB PO SCH (07:49)
[2016-04-19 08:00] VITALS: BP 121/75; PULSE 98; RESP 16; TEMP 97.9; O2SAT 97
[2016-04-19] MEDS ORDERED: LACTULOSE SYRUP 20 GM/30 ML CUP PO ONE (08:30)
[2016-04-19 12:00] VITALS: BP 150/68; PULSE 98; RESP 16; TEMP 97.8; O2SAT 98
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
[2016-05-03] MEDS ORDERED: XARE10TA PO (07:24)
[2016-05-03] MEDS ORDERED: HYDR-3583 PO (07:24)
[2016-05-03] MEDS ORDERED: OYST250T4 PO (07:24)
[2016-05-03] MEDS ORDERED: METH500T3 PO (07:24)
[2016-05-03] MEDS ORDERED: POLY17S PO (07:24)
[2016-05-03] MEDS ORDERED: FENT50T TD (07:24)
[2016-05-03] MEDS ORDERED: MAGN64 PO (07:24)
[2016-05-03] MEDS ORDERED: SENN1TAB PO (07:24)
[2016-05-03] MEDS ORDERED: MIDO5TAB PO (07:24)
[2016-05-03] MEDS ORDERED: FERR325T PO (07:24)
== END 2016-04-19 13:42 | DRG 958 ==
LOC: NEPE 19:40 → NEDA 22:24 → N03B 04-13 02:53 → N06A 04-14 12:19
PROVIDERS: ADMIT Surgery; ATTEND Surgery
PROC: 0T9B70Z Drainage of Bladder with Drainage Device, Via Natural or Artificial Opening (ICD-10-PCS; 2016-04-12)
PROC: 3E0F7GC Introduction of Other Therapeutic Substance into Respiratory Tract, Via Natural or Artificial Opening (ICD-10-PCS; 2016-04-12)
PROC: 0QS335Z Reposition Left Pelvic Bone with External Fixation Device, Percutaneous Approach (ICD-10-PCS; 2016-04-13)
PROC: 0QS Lower Bones, Reposition (ICD-10-PCS; 2016-04-13)
PROC: 0W9930Z Drainage of Right Pleural Cavity with Drainage Device, Percutaneous Approach (ICD-10-PCS; 2016-04-13)
PROC: 0PSJXZZ Reposition Left Radius, External Approach (ICD-10-PCS; principal; 2016-04-13 12:01)
PROC: 0QS Lower Bones, Reposition (ICD-10-PCS; 2016-04-13 12:01)
PROC: 30233N1 Transfusion of Nonautologous Red Blood Cells into Peripheral Vein, Percutaneous Approach (ICD-10-PCS; 2016-04-14)
DX: S52.502A Unspecified fracture of the lower end of left radius, initial encounter for closed fracture (principal); S27.2XXA Traumatic hemopneumothorax, initial encounter; S22.41XA Multiple fractures of ribs, right side, initial encounter for closed fracture; S36.113A Laceration of liver, unspecified degree, initial encounter; S32.811A Multiple fractures of pelvis with unstable disruption of pelvic ring, initial encounter for closed fracture; S32.049A Unspecified fracture of fourth lumbar vertebra, initial encounter for closed fracture; S32.10XA Unspecified fracture of sacrum, initial encounter for closed fracture; S32.059A Unspecified fracture of fifth lumbar vertebra, initial encounter for closed fracture; S27.321A Contusion of lung, unilateral, initial encounter; V03.10XA Pedestrian on foot injured in collision with car, pick-up truck or van in traffic accident, initial encounter; Y92.488 Other paved roadways as the place of occurrence of the external cause; Y93.01 Activity, walking, marching and hiking; S33.2XXA Dislocation of sacroiliac and sacrococcygeal joint, initial encounter
CPT/HCPCS: 36430; 51702; 70450; 71010; 71260; 72125; 72128; 72131; 72170; 72190; 73080; 73100; 73564; 73590; 74177; 76000; 80048; 80053; 81001; 82435; 82565; 82947; 83735; 84100; 84132; 84295; 84520; 85014; 85018; 85025; 85027; 85610; 85730; 86850; 86900; 86901; 86920; 87641; 90471; 90715; 93005; 94150; 96361; 96365; C1713; C1769; C9113; J0171; J0461; J0690; J1580; J1650; J2270; J2370; J2405; J2710; J3010; J3370; J7030; J7120; L3808; L8699; P9016; Q9967